=== PATIENT | female | born 1990 | race Caucasian/White ===

== ENCOUNTER 2021-03-31 17:44 | Emergency (ER) | payer SELFPAY ==
[~2021-03-31] VITALS: Ht 167.6 cm; Wt 124.6 kg
--- NOTE | 2021-03-31 17:48 | PHYS DOC ---
General Adult EDM: Chief Complaint: ALLERGIC REACTION HPI: HPI: ".. I got stung by a bee yesterday.. while mowing the yard.... It did not look bad at lst.. but now it is all red.. and I feel tightness in my chest.. " Patient is a 30 year old female who presents with reports of allergic reaction from a bee sting that occurred yesterday. Patient has approximately 8 x 6 cm erythemic area. No central area of sting rakesh. Patient states she did recognize insect as being a bee. Patient has had sensitivity to bee stings in the past. No history of severe allergic reaction. Patient does not remember her last tetanus but defers getting updated on the vaccination currently. Patient denies any travel. Patient denies any sick ill contacts. Patient denies any immunosuppression. Patient did take some Benadryl earlier and has been putting antibiotic ointment on the site. Patient is accompanied with her significant other. Patient has not gotten Covid vaccination. Review of Systems: Review of Systems: Constitutional: Denies fever or chills Eyes: Denies change in visual acuity HENT: Denies nasal congestion or sore throat Respiratory: Complains of chest tightness Cardiovascular: Denies chest pain or edema GI: Denies abdominal pain, nausea, vomiting, bloody stools or diarrhea : Denies dysuria Musculoskeletal: Denies back pain or joint pain Integument: Complains of localized reaction to bee sting left calf. Neurologic: Denies headache, focal weakness or sensory changes Endocrine: Denies polyuria or polydipsia Lymphatic: Denies swollen glands Psychiatric: Denies depression or anxiety Family History: Family History: Noncontributory to presentation Current Medications: Current Meds: See nursing for home meds Allergies: Allergies: No known allergies. Physical Exam: PE: Constitutional: Well developed, well nourished, no acute distress, non-toxic appearance. [] HENT: Normocephalic, atraumatic, bilateral external ears normal, oropharynx moist, no oral exudates, nose normal. [] Eyes: PERRLA, EOMI, conjunctiva normal, no discharge. Glasses Neck: Normal range of motion, no tenderness, supple, no stridor. [] Cardiovascular:Heart rate regular rhythm, no murmur [] Lungs & Thorax: Bilateral breath sounds to apex no significant wheezing or stri kostas auscultation [] Abdomen: Bowel sounds normal, soft, no tenderness, no masses, no pulsatile masses. [] Skin: Warm, dry, no erythema, no rash. Localized skin reaction from bee sting Back: No tenderness, no CVA tenderness. [] Extremities: No tenderness, no cyanosis, no clubbing, ROM intact, no edema. [] Except for localized area of left calf as per HPI. No cording Neurologic: Alert and oriented X 3, normal motor function, normal sensory function, no focal deficits noted. [] Psychologic: Affect anxious, judgement normal, mood normal. [] EKG: EKG: [] Radiology/Procedures: Radiology/Procedures: [] Heart Score: C/O Chest Pain: N/A Risk Factors: Risk Factors: DM, Current or recent (<one month) smoker, HTN, HLP, family history of CAD, obesity. Risk Scores: Score 0 - 3: 2.5% MACE over next 6 weeks - Discharge Home Score 4 - 6: 20.3% MACE over next 6 weeks - Admit for Clinical Observation Score 7 - 10: 72.7% MACE over next 6 weeks - Early Invasive Strategies Course & Med Decision Making: Course & Med Decision Making Pertinent Labs and Imaging studies reviewed. (See chart for details) Patient massage area with Polysporin 4 times a day. Patient take Benadryl 25 to 50 mg 4 times a day. Patient take Pepcid 20 mg twice a day. Patient take prednisone 50 mg daily for 5 days. Patient follow-up primary care. Patient monitor closely for signs of infection. Patient encouraged to update tetanus as she is over 10 years. Patient return if any concerns. May be a candidate for desensitization. Follow-up primary care is essential. Impression: 1. Delayed allergic response to bee sting (possible -type 4 response) [] Dragon Disclaimer: Dragon Disclaimer: This electronic medical record was generated, in whole or in part, using a voice recognition dictation system. Departure Departure: Referrals: PCP,NO (PCP) Scripts Prednisone (PREDNISONE) 50 Mg Tablet 50 MG PO DAILY for allergy for 5 Days, #5 TAB Prov: ANDRZEJ PRAKASH MD 03/31/21 Carlos Disclaimer This chart was dictated in whole or in part using Voice Recognition software in a busy, high-work load, and often noisy Emergency Department environment. It may contain unintended and wholly unrecognized errors or omissions. Dragon Disclaimer This chart was dictated in whole or in part using Voice Recognition software in a busy, high-work load, and often noisy Emergency Department environment. It may contain unintended and wholly unrecognized errors or omissions. ANDRZEJ PRAKASH MD Mar 31, 2021 17:48
[2021-03-31 17:59] VITALS: BP 127/74
[2021-03-31] MEDS ORDERED: PRED50TA PO (18:00)
[2021-03-31] MEDS: diphenhydrAMINE 50 MG/ML VIAL IVP ONE (18:00)
[2021-03-31] MEDS: ALBUTEROL SULFATE 8GM INHALER. INH ONE (18:03)
[2021-03-31] MEDS: FAMOTIDINE 20 MG/2 ML VIAL IVP ONE (18:04)
[2021-03-31] MEDS: methylPREDNISolone SOD SUCC PF 125 MG/2 ML VIAL. IV ONE (18:04)
== END 2021-03-31 18:29 | disposition home or self-care (01) ==
LOC: ER 17:44
DX: T63.441A Toxic effect of venom of bees, accidental (unintentional), initial encounter (principal); T78.40XA Allergy, unspecified, initial encounter; Y92.9 Unspecified place or not applicable
CPT/HCPCS: 96374; 96375; 99284; J2930; J3490

== ENCOUNTER 2022-01-09 09:45 | Emergency (ER) | payer OTHER ==
[~2022-01-09] VITALS: Ht 167.6 cm; Wt 73.0 kg
[~2022-01-09 09:45] MED LIST: PRED50TA PO
--- NOTE | 2022-01-09 10:04 | PHYS DOC ---
Past History Past Surgical History: No Surgical History Alcohol Use: None General Adult EDM: Chief Complaint: DIZZY/LIGHT HEADED HPI: HPI: Patient is a 31-year-old female who presents with dizziness/lightheadedness, left upper extremity pain and tingling in her left arm and hand. She denies chest pain, cough, dyspnea. She denies headache. She denies neck pain or back pain. She denies abdominal shimon, nausea or vomiting or bowel habit changes. She denies symptoms of vertigo. She denies syncope, near syncope, denies any fall. She denies head or neck trauma. Symptoms began around 8:00 this morning when she was exercising at the gym. Review of Systems: Review of Systems: Constitutional: Denies fever or chills Eyes: Denies change in visual acuity, diplopia, vision loss. HENT: Denies nasal congestion or sore throat Respiratory: Denies cough or shortness of breath Cardiovascular: Denies chest pain palpitations or peripheral edema, denies syncope. GI: Denies abdominal pain, nausea, vomiting, or diarrhea : Denies urinary symptoms Musculoskeletal: Denies back pain or neck pain. She describes left upper extremity pain Integument: Denies rash Neurologic: Denies headache, head injury, syncope or near syncope. She describes lightheadedness/dizziness. Denies symptoms of vertigo. Denies focal motor weakness. She does report tingling in her left upper extremity and hand, denies numbness. Psychiatric: Anxiety as it pertains to current symptoms. Allergies: Allergies: Allergies Coded Allergies Type Severity Reaction Last Updated Verified No Known Drug Allergies 03/31/21 No Physical Exam: PE: Constitutional: Well developed, well nourished, no acute distress, non-toxic appearance. [] HENT: Normocephalic, atraumatic, oropharynx is patent and clear, mucous membranes are moist. No evidence of facial oral trauma. No facial asymmetry. External ears are normal bilaterally. TMs are clear bilaterally. Nares are patent and clear without rhinorrhea or epistaxis. Eyes: PERRL, EOMI, conjunctiva normal, no discharge, no scleral icterus. No nystagmus. Neck: Normal range of motion, no tenderness, supple, no stridor. No midline tenderness or step-offs. No deformity. Cardiovascular:Heart rate regular rhythm, no murmur, +2 radial and +2 posterior tibial pulses bilaterally. Lungs & Thorax: Clear to auscultation bilaterally without rales, rhonchi or wheezes. No evidence of chest or thorax trauma. Abdomen: Abdomen is soft, nondistended, nontender to palpation. No CVA tenderness. No palpable masses organomegaly. Skin: Warm, dry, no erythema, no rash. [] Back: No tenderness, no CVA tenderness. Full range of motion, no midline tenderness or step-offs Extremities: No tenderness, no cyanosis, no clubbing, ROM intact, no edema. No limb deformity. Full active and passive range of motion of the left shoulder, left arm, left elbow, left forearm, left wrist and hand and digits. Neurologic: She is awake, alert, oriented x3. Cranial nerves II through XII are grossly intact. 5 out of 5 motor strength all 4 extremities. Sensation is grossly intact. No pronator drift or dysmetria. No limb ataxia. Gait is steady, no gait ataxia. Speech is clear and fluent. No focal deficits on exam. Psychologic: Mildly anxious, cooperative and pleasant. EKG: EKG: EKG is interpreted at 1038 Rhythm is sinus Rate is 73 bpm [place] is right No STEMI Radiology/Procedures: Radiology/Procedures: IMAGING REPORT Signed PATIENT: SAAD GEORGE ACCOUNT: [id number] : 1990 LOCATION: ER AGE: 31 SEX: F EXAM STATUS: REG ER ORD. PHYSICIAN: SATINDER MORENO DO REASON: dizzy, LUE pain and tingling PROCEDURE: CT HEAD AND CERVICAL SPINE WO STUDY: CT head and cervical spine without contrast INDICATION: Dizziness. Left upper extremity pain and tingling. COMPARISON: None. TECHNIQUE: Axial CT imaging through the head and cervical spine without the use of intravenous contrast. Sagittal and coronal reformats were obtained. One or more of the following individualized dose reduction techniques were utilized for this examination: 1. Automated exposure control 2. Adjustment of the mA and/or kV according to patient size 3. Use of iterative reconstruction technique. FINDINGS: CT head: No acute intracranial hemorrhage. No mass effect, midline shift or hydrocephalus. James-white matter differentiation is maintained. Intact calvarium. No layering fluid seen within the visualized paranasal sinuses. Well aerated mastoid air cells and middle ears. CT cervical spine: No acute or aggressive osseous process. Alignment is anatomic. No advanced spondylosis. No significant osseous encroachment on the central canal or neural foramina. Unremarkable paraspinous soft tissues and thyroid. A small nodular focus at the right lung apex on image 94 series 6 appears to be related to volume averaging with a vessel branch point based on the coronal images. Mild biapical scarring. IMPRESSION: CT head: 1. No acute intracranial abnormality by CT. CT cervical spine: 1. No fracture or aggressive osseous process. No advanced spondylosis or evidence for significant central canal or neural foraminal stenosis. Depending on the degree of clinical concern nonemergent MRI could be performed to better assess. Electronically signed by: CAMACHO TRACY MD (01/09/2022 10:57 AM) [facility] DICTATED AND SIGNED BY: CAMACHO TRACY MD DATE: 01/09/22 1053 CC: SATINDER MORENO DO; PCP,NO ~ IMAGING REPORT Signed PATIENT: SAAD GEORGE ACCOUNT: [id number] : 1990 LOCATION: ER AGE: 31 SEX: F EXAM STATUS: REG ER ORD. PHYSICIAN: SATINDER MORENO DO REASON: LUE pain PROCEDURE: PORTABLE CHEST 1V Study: XR CHEST 1V Indication: Left upper extremity pain. Comparison: None. Findings: The cardiomediastinal silhouette and lex are within normal limits. No localized airspace opacity, pleural effusion or pneumothorax. Impression: No acute radiographic abnormality of the chest. Electronically signed by: CAMACHO TRACY MD (01/09/2022 11:15 AM) [facility] DI[facility] AND SIGNED BY: CAMACHO TRACY MD DATE: 01/09/22 1115 CC: SATINDER MORENO DO; PCP,NO ~ Heart Score: C/O Chest Pain: No Risk Factors: Risk Factors: DM, Current or recent (<one month) smoker, HTN, HLP, family history of CAD, obesity. Risk Scores: Score 0 - 3: 2.5% MACE over next 6 weeks - Discharge Home Score 4 - 6: 20.3% MACE over next 6 weeks - Admit for Clinical Observation Score 7 - 10: 72.7% MACE over next 6 weeks - Early Invasive Strategies Course & Med Decision Making: Course & Med Decision Making Pertinent Labs and Imaging studies reviewed. (See chart for details) The patient declined pain medication. She has a nonfocal neurologic exam. Her symptoms seem to be most consistent with cervical radiculopathy. I have discussed all of the findings, differential diagnosis and plan of care with her. Recommend that she see a primary care physician, she should discuss outpatient, nonemergent cervical spine MRI. She is given resources to establish care with a primary care physician, though she is moving to [place] in [place] at the end of January. I gave her very strict return precautions. She verbalizes understanding. She is discharged in stable condition. Carlos Disclaimer: Carlos Disclaimer: This electronic medical record was generated, in whole or in part, using a voice recognition dictation system. Departure Departure: Impression: Primary Impression: Cervical radiculopathy Disposition: HOME / SELF CARE / HOMELESS Condition: STABLE Referrals: PCP,KURT (PCP) Patient Instructions: Cervical Radiculopathy Additional Instructions: Please return to the ER for motor weakness, chest pain, shortness of breath, severe headache, facial weakness, lower extremity weakness or any other concerns. You should follow-up with your primary care physician, you may require nonemergent, outpatient MRI to assess for any disc problems in your cervical spine. Scripts Prednisone (PREDNISONE) 50 Mg Tablet 1 TAB PO DAILY for inflammation, #5 TAB Prov: SATINDER MORENO DO 01/09/22 SATINDER MORENO DO Jan 09, 2022 10:03
[2022-01-09 10:06] VITALS: BP 127/74
--- NOTE | 2022-01-09 11:00 | RAD ---
STUDY: CT head and cervical spine without contrast INDICATION: Dizziness. Left upper extremity pain and tingling. COMPARISON: None. TECHNIQUE: Axial CT imaging through the head and cervical spine without the use of intravenous contra st. Sagittal and coronal reformats were obtained. One or more of the following individualized dose reduction techniques were utilized for this examinat ion: 1. Automated exposure control 2. Adjustment of the mA and/or kV according to patient size 3. Use of iterative reconstruction technique. FINDINGS: CT head: No acute intracranial hemorrhage. No mass effect, midline shift or hydrocephalus. James-white matter d ifferentiation is maintained. Intact calvarium. No layering fluid seen within the visualized paranasal sinuses. Well aerated mastoi d air cells and middle ears. CT cervical spine: No acute or aggressive osseous process. Alignment is anatomic. No advanced spondylosis. No significant osseous encroachment on the central canal or neural foramina. Unremarkable paraspinous soft tissues and thyroid. A small nodular focus at the right lung apex on im age 89 series 6 appears to be related to volume averaging with a vessel branch point based on the cor onal images. Mild biapical scarring. IMPRESSION: CT head: 1. No acute intracranial abnormality by CT. CT cervical spine: 1. No fracture or aggressive osseous process. No advanced spondylosis or evidence for significant ce ntral canal or neural foraminal stenosis. Depending on the degree of clinical concern nonemergent MRI could be performed to better assess. Electronically signed by: CAMACHO TRACY MD (01/09/2022 10:57 AM) [facility]
--- NOTE | 2022-01-09 11:01 | EKG ---
[address] [address] Test Date: 2022-01-09 Test Time: 10:37:19 Pat Name: SAAD GEORGE Department: Room: Gender: F Supervisor [facility]: [facility] : 1990 Requested By: SATINDER MORENO Order Number: [id number] Reading MD: Coleman Sams Measurements Intervals [place] Rate: 73 P: 67 AK: 140 QRS: 94 QRSD: 108 T: 41 QT: 376 QTc: 418 Interpretive Statements SINUS RHYTHM RIGHTWARD AXIS Electronically Signed On 01-11-2022 13:33:00 CDT by Coleman Sams
[2022-01-09 11:03] LABS: BASO % 1 % (0-3); EOS % 0 % (0-3); HEMATOCRIT 42.6 % (36.0-47.0); HEMOGLOBIN 14.4 g/dL (12.0-15.5); LYMPH # 0.8 x10^3/uL (1.0-4.8); LYMPH % 11 % (24-48); MEAN CORPUSCULAR HEMOGLOBIN 30 pg (25-35); MEAN CORPUSCULAR HGB CONC 34 g/dL (31-37); MEAN CORPUSCULAR VOLUME 87 fL (79-100); MONO # 0.3 x10^3/uL (0.0-1.1); MONO % 4 % (0-9); NEUT # 6.3 x10^3uL (1.8-7.7); NEUT % 85 % (31-73); PLATELET COUNT 250 x10^3/uL (140-400); RED BLOOD COUNT 4.88 x10^6/uL (3.50-5.40); RED CELL DISTRIBUTION WIDTH 12.9 % (11.5-14.5); WHITE BLOOD COUNT 7.5 x10^3/uL (4.0-11.0)
[2022-01-09 11:10] LABS: CALCIUM 9.7 mg/dL (8.5-10.1); CREATININE 0.9 mg/dL (0.6-1.0); GFR 72.1; POTASSIUM 4.4 mmol/L (3.5-5.1)
[2022-01-09 11:16] LABS: MAGNESIUM 2.3 mg/dL (1.8-2.4)
--- NOTE | 2022-01-09 11:17 | RAD ---
Study: XR CHEST 1V Indication: Left upper extremity pain. Comparison: None. Findings: The cardiomediastinal silhouette and lex are within normal limits. No localized airspace opacity, pl eural effusion or pneumothorax. Impression: No acute radiographic abnormality of the chest. Electronically signed by: CAMACHO TRACY MD (01/09/2022 11:15 AM) [facility]
[2022-01-09 11:41] LABS: BACTERIA,URINE 0 /HPF (0-FEW); CLARITY,URINE CLEAR; COLOR,URINE COLORLESS; GLUCOSE,URINE NEG (NEG); NITRITE,URINE NEG (NEG); RBC,URINE 0 /HPF (0-2); SQUAMOUS EPITHELIAL CELL,UR MOD /LPF; UROBILINOGEN,URINE 0.2 mg/dL (0.2 mg/dL); WBC,URINE 0 /HPF (0-4)
[2022-01-09] MEDS ORDERED: PRED50TA PO (12:14)
== END 2022-01-09 12:10 | disposition home or self-care (01) ==
LOC: ER 09:45
DX: M54.12 Radiculopathy, cervical region (principal); R42 Dizziness and giddiness
CPT/HCPCS: 36415; 70450; 71045; 72125; 80048; 81001; 81025; 82550; 83735; 84484; 85025; 93005; 99285